=== PATIENT | female | born 1980 | race Asian ===

== ENCOUNTER 2023-04-08 19:20 | Emergency (ER) | payer OTHER ==
[2023-04-08 19:29] VITALS: BP 139/71; PULSE 94; RESP 18; TEMP 98.3; BMI 21.0
[2023-04-08] MEDS ORDERED: ACETAMINOPHEN 1000 MG/100 ML BAG IVPB ONE (20:04)
[2023-04-08] MEDS ORDERED: ACETAMINOPHEN INJECTION 100 ML IVPB ONE (20:10)
[2023-04-08 20:34] LABS: BASO % 0.2 % (0-2.0); EOS % 2.4 % (0-4.5); HEMATOCRIT 35.4 % (32.4-45.2); HEMOGLOBIN 11.7 GM/dL (10.7-15.3); LYMPH % 26.1 % (8-40); MEAN CELL VOLUME 84.8 fl (80-96); MEAN PLT VOLUME 10.4 fl (7.5-11.1); NEUT % 61.3 % (42.8-82.8); PLATELET COUNT 289 10^3/uL (134-434); RBC 4.18 M/mm3 (3.60-5.2); RDW 12.6 % (11.6-15.6); WHITE BLOOD COUNT 6.2 K/mm3 (4.0-10.0)
[2023-04-08 20:46] LABS: INR 1.3 (0.83-1.09)
[2023-04-08 20:48] LABS: ACTIVATED PTT 30.7 SECONDS (25.2-36.5)
[2023-04-08 20:57] LABS: CALCIUM 8.8 mg/dL (8.5-10.1)
[2023-04-08 20:58] LABS: ALBUMIN 3.5 g/dl (3.4-5.0); BLOOD UREA NITROGEN 10.3 mg/dL (7-18)
[2023-04-08 21:01] LABS: CREATININE 0.6 mg/dL (0.55-1.3)
[2023-04-08 21:02] LABS: BILIRUBIN,TOTAL 0.2 mg/dL (0.2-1); TOT PROT 7.6 g/dl (6.4-8.2)
[2023-04-08 22:18] LABS: EPI CELLS 14 /uL (0-25.1); HYALINE CASTS 1 /uL (0-3.1); URINE APPEARANCE CLEAR; URINE BACTERIA 33 /uL (0-1359); URINE BILIRUBIN NEGATIVE (NEGATIVE); URINE COLOR YELLOW; URINE GLUCOSE (UA) NEGATIVE (NEGATIVE); URINE KETONE NEGATIVE (NEGATIVE); URINE LEUK ESTERASE NEGATIVE (NEGATIVE); URINE NITRITE NEGATIVE (NEGATIVE); URINE PROTEIN NEGATIVE (NEGATIVE); URINE RBC 12 /uL (0-23.9); URINE UROBILINOGEN 0.2 mg/dL (0.2-1.0); URINE WBC 1 /uL (0-25.8)
== END 2023-04-08 23:07 | disposition home or self-care (01) ==
LOC: JER 19:20
PROC: 3E033NZ Introduction of Analgesics, Hypnotics, Sedatives into Peripheral Vein, Percutaneous Approach (ICD-10-PCS; principal; 2023-04-08)
DX: O26.891 Other specified pregnancy related conditions, first trimester (principal); R10.31 Right lower quadrant pain; M54.9 Dorsalgia, unspecified; R42 Dizziness and giddiness; R11.0 Nausea; R50.9 Fever, unspecified; O20.9 Hemorrhage in early pregnancy, unspecified; O36.8390 Maternal care for abnormalities of the fetal heart rate or rhythm, unspecified trimester, not applicable or unspecified; R00.1 Bradycardia, unspecified; Z3A.01 Less than 8 weeks gestation of pregnancy
CPT/HCPCS: 36415; 76817-TC; 80053; 81003; 84702; 85025; 85610; 85730; 86850; 86900; 86901; 87086; 99284-25